=== PATIENT | male | born 1955 | race Caucasian/White ===

== ENCOUNTER 2017-07-21 03:36 | Emergency (ER) | payer BC ==
[~2017-07-21] VITALS: Ht 170.2 cm; Wt 100.9 kg
[~2017-07-21 03:36] MED LIST: ADIPEX-P37.5 M1 PO; CENTRUM SILVER1 EAC1 PO; GEMFIBROZIL600 MG PO; KLONOPIN0.5 M1 PO; LASIX40 MG PO; LEVEMIR FL100 UNIT/1 SC; LEXAPRO5 MG PO; LO-DOSE ASPIRIN81 M1 PO; METOLAZONE5 MG PO; NOVOLOG PE100 UNITS/ SC; OMEGA-31000 M1 PO; POTASSIUM CHLO20 ME1 PO; PRINIVIL20 MG PO; VIAGRA100 MG PO; VITAMIN D1000 UNIT PO; WELLBUTRIN SR150 MG PO; ZEBETA5 MG PO
[2017-07-21 04:08] LABS: HEMATOCRIT 43.6 % (38.0-50.0); MCH 32.3 PG (29.0-34.0); MCHC 34.9 G/DL (30.0-36.0); MCV 92.6 FL (86-99); MEAN PLAT.VOLUME 9.3 uM^3 (9.0-12.4); PLATELET COUNT 208 K/uL (156-360); RBC DIS.WIDTH-CV 13.1 % (11.8-14.6); RBC DIS.WIDTH-SD 44.5 % (39-53); RED BLOOD COUNT 4.71 M/uL (4.00-5.50); WHITE BLOOD COUNT 11.4 K/uL (4.1-10.2)
[2017-07-21 04:23] LABS: CHLORIDE 99 mEq/L (99-109); SODIUM 137 mEq/L (136-147)
[2017-07-21 04:27] LABS: ANION GAP 12 MEQ/L (2-14); TOTAL BILIRUBIN 0.9 mg/dL (0.0-1.0)
[2017-07-21 04:29] LABS: ALKALINE PHOSPHATASE 67 IU/L (3-129); GFR ESTIMATE (CALCULATED) 41 mL/min/ (58.99-99999)
[2017-07-21 04:30] LABS: UREA NITROGEN (BUN) 31 mg/dL (9-23)
[2017-07-21 04:33] LABS: LIPASE 149 U/L (1.0-51.0)
[2017-07-21 04:33] LABS: ADD MIUA? YES; BILIRUBIN NEGATIVE; BLOOD MODERATE; COLOR YELLOW ((YELLOW)); GLUCOSE (STRIP) >=500; KETONES NEGATIVE; LEUKOCYTES NEGATIVE; NITRITE NEGATIVE; PROTEIN (STRIP) >=500; SPECIFIC GRAVITY 1.013 (1.000-1.030); UROBILINOGEN 0.2 MG/DL (0.2-1.0)
[2017-07-21 04:53] LABS: GLUCOSE 271 mg/dL (70-99)
[2017-07-21 05:22] LABS: BACTERIA NONE SEEN /HPF; EPITHELIAL CELLS RARE /HPF; MUCUS TRACE /LPF; RED BLOOD CELLS 40-50 /HPF (0-5); UCUL ADDED? NO; WHITE BLOOD CELLS 0-5 /HPF (0-5)
[2017-07-21] MEDS ORDERED: PERCOCET 5/31 TABLET PO (06:33)
[2017-07-21] MEDS ORDERED: FLOMAX0.4 MG PO (06:33)
[2017-07-21] MEDS ORDERED: ZOFRAN4 MG PO (06:33)
[2017-07-21 08:25] VITALS: BP 165/78
== END 2017-07-21 08:39 | disposition home or self-care (01) ==
LOC: EME 03:36
DX: N20.1 Calculus of ureter (principal); R91.1 Solitary pulmonary nodule; I10 Essential (primary) hypertension; E11.65 Type 2 diabetes mellitus with hyperglycemia; Z79.4 Long term (current) use of insulin; I12.9 Hypertensive chronic kidney disease with stage 1 through stage 4 chronic kidney disease, or unspecified chronic kidney disease; E11.22 Type 2 diabetes mellitus with diabetic chronic kidney disease; N18.9 Chronic kidney disease, unspecified; F17.200 Nicotine dependence, unspecified, uncomplicated; F32.9 Major depressive disorder, single episode, unspecified; F41.9 Anxiety disorder, unspecified; Z87.442 Personal history of urinary calculi
CPT/HCPCS: 74176; 80053; 81003; 83690; 85027; J2270; J2405; J7030